=== PATIENT | male | born 1965 ===

== ENCOUNTER 2019-09-06 19:32 | Inpatient (IN) | payer OTHER ==
[2019-09-06] MEDS: Propofol 1,000 MG/100 ML VIAL IV PRN (22:25)
[2019-09-06] MEDS ORDERED: Electrolyte Replacement Protoc 1 EACH EACH IVPB ONE (22:40)
[2019-09-06] MEDS ORDERED: Acetaminophen 650 MG Suppository PR PRN (22:40)
[2019-09-06] MEDS ORDERED: Ventilator Sedation Protocol 1 EACH FS SCH (22:45)
[2019-09-06] MEDS ORDERED: Propofol 1,000 MG/100 ML VIAL IV ONE (23:23)
--- NOTE | 2019-09-06 23:29 | PDOC.EVN ---
Event Note - Event Note Event Note: [id number] HP dictated
[2019-09-06] MEDS ORDERED: Magnesium Oxide 400 MG TAB PO PRN ×2 (23:34)
[2019-09-06] MEDS ORDERED: Propofol BOLUS 1,000 MG/100 ML VIAL IV PRN (23:34)
[2019-09-06] MEDS ORDERED: PHOS-NAK 1 PKT PACK PO PRN ×2 (23:34)
[2019-09-06] MEDS ORDERED: Potassium Phosphate 15 MMOL in Sodium Chloride 0.9% 250 ML 250 ML IV PRN (23:34)
[2019-09-06] MEDS ORDERED: Fentanyl BOLUS 250 ML IVPB PRN (23:34)
[2019-09-06] MEDS ORDERED: Potassium Chloride 20 MEQ TAB PO PRN (23:34)
[2019-09-06] MEDS ORDERED: Potassium Chloride 40 MEQ in Premix Bag 1 BAG IVPB PRN (23:34)
[2019-09-06] MEDS ORDERED: DISCONTINUE PREVIOUS NARCOTIC PAIN MEDICATIONS AND BENZODIAZEPINES FS SCH (23:34)
[2019-09-06] MEDS ORDERED: CCU ELECTROLYTE REPLACEMENT PROTOCOL FS PRN (23:34)
[2019-09-06] MEDS ORDERED: Potassium Phosphate 9 MMOL in Sodium Chloride 0.9% 100 ML IVPB PRN (23:34)
[2019-09-06] MEDS ORDERED: Magnesium 2 GM/50 ML 2 GM in Premix Bag 1 BAG IVPB PRN (23:34)
[2019-09-06] MEDS ORDERED: Potassium Phosphate 12 MMOL in Sodium Chloride 0.9% 250 ML 250 ML IV PRN (23:34)
[2019-09-06] MEDS ORDERED: Morphine 2 MG/ML SYRINGE SLOW IVP PRN (23:34)
[2019-09-06] MEDS ORDERED: Potassium Chloride 40 MEQ in Sodium Chloride 0.9% 250 ML 250 ML IVPB PRN (23:34)
[2019-09-06] MEDS ORDERED: Azithromycin 500 MG in Sodium Chloride 0.9% 250 ML 250 ML IVPB SCH (23:45)
[2019-09-06] MEDS: fentaNYL Citrate/PF 2,000 MCG in Sodium Chloride 0.9% 60 ML IV SCH (23:50)
[2019-09-06] MEDS: Cefepime 1 GM in Sodium Chloride 0.9% 100 ML IVPB SCH (23:50)
[2019-09-06] MEDS: Vecuronium 10 MG VIAL IV PRN (23:50)
[2019-09-06] MEDS: methylPREDNISolone Sod Succ 40 MG VIAL IVP SCH (23:50)
[2019-09-07] MEDS ORDERED: Dextrose 5% in Water 1,000 ML IV PRN (01:21)
[2019-09-07] MEDS ORDERED: Dextrose 50% Abboject 50 ML SYRINGE SLOW IVP PRN (01:21)
[2019-09-07] MEDS ORDERED: HumaLOG 300 UNITS/3 ML VIAL SC PRN (01:21)
[2019-09-07 01:51] LABS: ALT (SGPT) 68 U/L (8-55); AST (SGOT) 134 U/L (5-34); Albumin 3.4 g/dL (3.5-5.0); Alkaline Phosphatase 134 U/L (40-110); Anion Gap 18 mmol/L (10-20); BUN (Urea Nitrogen) 19 mg/dL (8.4-25.7); Bilirubin, Direct 0.5 mg/dL (0.1-0.3); Bilirubin, Total 1.1 mg/dL (0.2-1.2); Calc. Creatinine Clearance 143 mL/min (70-130); Carbon Dioxide 30 mmol/L (22-29); Chloride 94 mmol/L (98-107); Estimated GFR-MDRD 69; Globulin 3.2 g/dL (2.4-3.5); Glucose 97 mg/dL (70-105); Potassium 3.8 mmol/L (3.5-5.1); Protein, Total 6.6 g/dL (6.0-8.3); Sodium 138 mmol/L (136-145)
--- NOTE | 2019-09-07 02:32 | HP ---
CHIEF COMPLAINT: Respiratory failure. HISTORY OF PRESENT ILLNESS: Mr. Ashton is a 53-year-old male with past medical history of pulmonary embolism, hypertension, diabetes mellitus, lung cancer?, depression, who is being transferred from [facility] after he presented there a few days ago with shortness of breath. The patient initially was treated with oxygen, and then placed on BiPAP. COVID test came back positive today. The patient deteriorated, became more hypoxic, requiring intubation and mechanical ventilation. The patient is being transferred to our medical facility for pulmonary/visual associate consultation and further management. No further history can be obtained this time. The patient is currently sedated. PAST MEDICAL HISTORY: As per records. 1. Hypertension. 2. Diabetes mellitus. 3. Depression. 4. Pulmonary embolism. 5. Lung cancer? PAST SURGICAL HISTORY: Unknown. SOCIAL HISTORY: Unknown. The patient is intubated and sedated. FAMILY HISTORY: Unknown. The patient is intubated and sedated. ALLERGIES: UNKNOWN. CURRENT/HOME MEDICATIONS: Please see home medication reconciliation form for updated medications. REVIEW OF SYSTEMS: Unable to obtain. The patient is intubated and sedated. PHYSICAL EXAMINATION: GENERAL: The patient is intubated, sedated, on mechanical ventilator. VITAL SIGNS: Blood pressure is 130/80, heart rate is 80, respiratory rate is 24, temperature is 99.5. HEAD AND NECK: Normocephalic. NECK: Supple. CHEST: Coarse bilateral breath sounds. HEART: S1 and S2. Regular. ABDOMEN: Soft. Bowel sounds present. NEUROLOGIC: Intubated, sedated, unable to assess. PSYCH: Unable to assess. EXTREMITIES: No clubbing or cyanosis. LABORATORY DATA: Current oxygen saturation is 88% on SIMV, rate of 24, tidal volume 500, PEEP of 8, 100% FiO2. Labs pending. ASSESSMENT AND PLAN: 1. Acute hypoxic respiratory failure. 2. Pneumonia, COVID-19 infection. 3. History of pulmonary embolism. 4. Hypertension. 5. Diabetes history. 6. Depression history. 7. History of lung cancer? PLAN: 1. Continue full ventilator support. We will increase the PEEP as recommended by tmd teacher. We will continue sedation and use paralytics as needed. 2. IV steroids. 3. Convalescent plasma. 4. Antiviral. 5. IV antibiotics, cefepime, and azithromycin. 6. Continue anticoagulation. 7. GI prophylaxis. 8. Pulmonary/visual associate consulted for critical care management. 9. DVT prophylaxis. The patient is on anticoagulation. 10. The patient's condition is critical. 11. Expected length of stay, 3 midnights or more. Job ID: [id number]
[2019-09-07] MEDS: Vecuronium 10 MG VIAL IV PRN ×5 (02:33→21:30)
[2019-09-07] MEDS: Propofol 1,000 MG/100 ML VIAL IV PRN ×5 (02:34→16:01)
[2019-09-07] MEDS ORDERED: Non-Formulary Item 1 EACH in Sodium Chloride 0.9% 250 ML 210 ML IV SCH (02:45)
[2019-09-07] MEDS ORDERED: Enoxaparin Sodium 80 MG/0.8 ML SYRINGE SC SCH ×2 (02:45→21:00)
[2019-09-07 04:56] LABS: ALT (SGPT) 58 U/L (8-55); AST (SGOT) 87 U/L (5-34); Albumin 3.1 g/dL (3.5-5.0); Alkaline Phosphatase 117 U/L (40-110); Anion Gap 16 mmol/L (10-20); BUN (Urea Nitrogen) 22 mg/dL (8.4-25.7); Bilirubin, Total 1.1 mg/dL (0.2-1.2); Calc. Creatinine Clearance 99 mL/min (70-130); Calcium 8.6 mg/dL (7.8-10.44); Carbon Dioxide 34 mmol/L (22-29); Chloride 92 mmol/L (98-107); Estimated GFR-MDRD 46; Globulin 3.6 g/dL (2.4-3.5); Glucose 155 mg/dL (70-105); Potassium 3.7 mmol/L (3.5-5.1); Protein, Total 6.7 g/dL (6.0-8.3); Sodium 138 mmol/L (136-145)
[2019-09-07] MEDS: methylPREDNISolone Sod Succ 40 MG VIAL IVP SCH ×4 (04:57→23:25)
[2019-09-07 04:58] LABS: Band 24 % (5-11); Lymphocytes 1 % (21-51); MDiff Complete? YES; Mean Corpuscular HGB CONC 30.5 g/dL (32.0-36.0); Mean Corpuscular Volume 78.8 fL (78.0-98.0); Mean Platelet Volume 10.6 fL (7.4-10.4); Monocytes 2 % (0-10); Neutrophil 73 % (42-75); Platelet Count 190 thou/uL (130-400); RBC Distribution Width 15.4 % (11.5-14.5); White Blood Cell (WBC) Count 8.4 thou/uL (4.8-10.8)
[2019-09-07] MEDS: HumaLOG 300 UNITS/3 ML VIAL SC PRN ×3 (05:27→16:00)
[2019-09-07] MEDS: Famotidine/PF 20 mg/2ml Vial SLOW IVP SCH ×2 (07:08→21:11)
[2019-09-07] MEDS: Lorazepam 2 MG/ML VIAL SLOW IVP PRN ×4 (07:09→15:28)
[2019-09-07 07:38] LABS: Actual Bicarbonate (HCO3a) 31.8 mEq/L (22-28); Base Excess (BEa) 7.1 mEq/L (-2.0 to +3.0); CO2 Tension 45.6 mmHg (35.0-45.0); Calcium, Ionized (arterial) 1.07 mmol/L (1.12-1.30); Hemoglobin (Hb) 12.1 g/dL (14.0-18.0); O2 Tension (PaO2), arterial 73.9 mmHg (80.0-100.0); Potassium - ABG Lab 3.13 mmol/L (3.70-5.30); pH, Arterial 7.46 (7.35-7.45)
[2019-09-07 07:40] LABS: Puncture Site LRA
--- NOTE | 2019-09-07 07:45 | RAD ---
Chest one view HISTORY: Dyspnea. Pneumonia. Follow-up. COMPARISON: 09/04/2019. FINDINGS: Cardiac silhouette is magnified, enlarged, and partially obscured by worsening patchy wides pread infiltrates throughout each lung that have progressed since the prior study. Pulmonary vasculature is more engorged. Patient is rotated leftward. Tip of an endotracheal catheter is at the level of the clavicular heads. Nasogastric tube descends to the abdomen. No evidence of pneumothorax. hot dip tinning supervisor leads overlie the chest. IMPRESSION : Interval radiographic worsening of pulmonary vascular congestion and multifocal infiltrates. Endotracheal catheter tip just above the level of the clavicular heads. Consider slight advancement.
[2019-09-07] MEDS ORDERED: Enoxaparin Sodium 40 MG/0.4 ML SYRINGE SC SCH ×3 (09:00→14:45)
--- NOTE | 2019-09-07 12:24 | CON ---
DATE OF CONSULTATION: HISTORY OF PRESENT ILLNESS: Esteban Ashton is a 53-year-old morbidly obese gentleman from the [facility], who was at the [facility] for 24 hours with a diagnosis of respiratory failure. There was some concern that he had a history of presumed pulmonary emboli, hypertension, diabetes, lung cancer stage IV. He then became markedly short of breath. His coronavirus test was negative. He was placed on BiPAP, he was not able to tolerate it. The physician from [facility] notified me that he was being intubated and was being transferred over here. Previous arrangements had been made for him to go to [place], where he had previous medical treatment. Unfortunately, post intubation, he was unstable and he was therefore transferred over here. Obviously, we are unable to get any additional information or history at this time. By reviewing his records from [facility], where he was initially seen by physician over there, his admitting diagnosis was shortness of breath. His list of medicine had included amlodipine 10, aspirin 81, atorvastatin, Coreg 6.25 twice a day, Decadron 4 mg daily, duloxetine 30, Lovenox 130 subcu q.12, ferrous sulfate, lactulose, morphine t.i.d., insulin, Tagrisso 80, hydrochlorothiazide 50. His diagnoses are metastatic lung cancer, diabetes, hypertension, dermatitis, diabetes, previous PE diagnosed in June 2019. He is a [facility] inmate. He smoked for five years as per the history. Quit drinking after he went to the [facility]. PHYSICAL EXAMINATION: GENERAL: He is in the prone position this morning because of his severe hypoxemia. VITAL SIGNS: Pulse 77, blood pressure 106/61, sats 97%. He is on 100%, PEEP of 10. CHEST: Decreased breath sounds. No wheezing. No crackles. CARDIAC: Normal S1 and S2. No gallops. ABDOMEN: No masses. EXTREMITIES: Trace edema. LABORATORY DATA: White count 8000, hemoglobin and hematocrit 12 and 38, platelet count is 190, 73 segs, 24 bands. PO2 is 73, pCO2 of 40, pH 7.46, rate 24, 90%, PEEP of 12. Creatinine is 1.58. Liver function is elevated. His bilirubin is 1.1. His AST is 87, ALT is 58. COVID serology positive. X-ray shows extensive bilateral infiltrates, may be some kind of masslike shadow in the right lung. ASSESSMENT: 1. Respiratory failure, pneumonia, coronavirus positive. 2. Morbid obesity. 3. Metastatic cancer, history of pulmonary embolism, mild azotemia. Steroids, doxycycline, Lovenox, remdesivir and convalescent plasma have been initiated. We will try and get him to [place] as soon as he is stabilized, since they have all of his records over there. This is a 45-minute critical time. Job ID: [id number]
[2019-09-07] MEDS: Cefepime 1 GM in Sodium Chloride 0.9% 100 ML IVPB SCH ×2 (12:53→21:10)
[2019-09-07] MEDS ORDERED: Cefepime 1 GM in Sodium Chloride 0.9% 100 ML IVPB SCH (13:00)
[2019-09-07] MEDS: fentaNYL Citrate/PF 2,000 MCG in Sodium Chloride 0.9% 60 ML IV SCH (15:23)
--- NOTE | 2019-09-07 21:00 | PDOC.HOSPP ---
- Subjective Encounter Date: 09/07/19 Encounter Time: 07:00 Subjective: no overnight events. Remains in prone position - Objective Vital Signs & Weight: Vital Signs (12 hours) Temp Pulse Resp BP 09/07/19 20:00 98.5 F 09/07/19 18:45 71 136/72 09/07/19 18:00 09/07/19 16:00 98.2 F 09/07/19 14:05 75 09/07/19 14:00 09/07/19 12:00 98.5 F 09/07/19 10:00 24 H 09/07/19 09:57 86 Weight Admit Weight 293 lb Weight 293 lb 3.437 oz Most Recent Monitor Data Heart Rate from ECG 76 NIBP 135/72 NIBP BP-Mean 93 Respiration from ECG 20 SpO2 97 I&O: 09/06/19 09/07/19 09/08/19 06:59 06:59 06:59 Intake Total 386 465.0 Output Total 920 1440 Balance -534 -975.0 Result Diagrams: 09/07/19 03:45 09/07/19 03:45 Additional Labs: Accuchecks 09/07/19 09/07/19 09/07/19 15:37 10:08 05:35 POC Glucose 171 H 186 H 173 H Hospitalist ROS - Review of Systems ROS unobtainable: due to endotracheal tube - Medication Medications: Active Medications Generic Name Dose Route Start Last Admin Trade Name Freq PRN Reason Stop Dose Admin Famotidine 20 mg 09/07/19 09:00 09/07/19 07:08 Pepcid SLOW IVP 20 mg Q12HR KATERYNA Administration Fentanyl Citrate 2,000 mcg/ 100 mls @ 0 mls/hr 09/06/19 23:34 09/07/19 15:23 Sodium Chloride IV 10/06/19 23:34 100 mls INF KATERYNA Administration Protocol Per Protocol Doxycycline Hyclate 100 mg/ 100 mls @ 100 mls/hr 09/07/19 09:00 09/07/19 09: 31 Sodium Chloride IVPB 100 mls Q12HR KATERYNA Administration Insulin Human Lispro 0 units 09/07/19 01:21 09/07/19 16:00 Humalog SC 2 units .MILD SLIDING SCALE PRN Administration Mild Correctional Scale Lorazepam 2 mg 09/06/19 23:34 09/07/19 15:28 Ativan SLOW IVP 10/06/19 23:34 2 mg Q1H PRN Administration Breakthrough agitation Methylprednisolone Sodium Succinate 40 mg 09/06/19 23:59 09/07/19 18:57 Solu-Medrol IVP 40 mg Q6HR KATERYNA Administration Propofol 1,000 mg 09/06/19 23:34 09/07/19 16:01 Diprivan IV 10/06/19 23:34 1,000 mg INF PRN Administration TO ACHIEVE GOAL RASS Protocol Vecuronium [place] 10 mg 09/06/19 23:41 09/07/19 04:56 Norcuron IV 10 mg Q1H PRN Administration PARALYSIS - Exam General - other findings: intubated sedated prone Heart: RRR, no murmur, no gallops, no rubs Respiratory: CTAB, no wheezes, no rales, no ronchi Extremities: 1+ LE edema Hosp A/P - Plan #COVID pneumonia #ARDS -remdesivir stopped since not qualifying (symptoms ~ 2 weeks) -continue ABx and ventilation as per primary PCCM, ID #metastatic lung cancer
[2019-09-07] MEDS: Enoxaparin Sodium 40 MG/0.4 ML SYRINGE SC SCH (21:11)
[2019-09-08] MEDS: Propofol 1,000 MG/100 ML VIAL IV PRN ×6 (00:40→21:24)
[2019-09-08] MEDS: Vecuronium 10 MG VIAL IV PRN (01:36)
[2019-09-08] MEDS ORDERED: Non-Formulary Item 1 EACH in Sodium Chloride 0.9% 250 ML 230 ML IV SCH (02:45)
[2019-09-08] MEDS: methylPREDNISolone Sod Succ 40 MG VIAL IVP SCH (05:01)
[2019-09-08] MEDS: HumaLOG 300 UNITS/3 ML VIAL SC PRN ×4 (05:47→20:16)
--- NOTE | 2019-09-08 07:47 | RAD ---
Chest one view HISTORY: Pneumonia. Dyspnea. Follow-up. COMPARISON: 09/07/2019. FINDINGS: Cardiac silhouette is magnified and enlarged. Pulmonary vasculature remains engorged. The r ight upper lobe and left lung infiltrates are slightly less dense than on the prior study. Mediastinum is midline. Lines and tubes are unchanged in position. No evidence of pneumothorax. IMPRESSION : Slight interval improvement in radiographic appearance of multifocal infiltrates and pulmonary vascul ar congestion.
[2019-09-08 08:05] LABS: Base Excess (BEa) 9.6 mEq/L (-2.0 to +3.0)
[2019-09-08 08:06] LABS: Puncture Site RRA
[2019-09-08 08:14] LABS: Hemoglobin 12.7 g/dL (14.0-18.0); Mean Corpuscular HGB CONC 30.9 g/dL (32.0-36.0); Mean Platelet Volume 9.7 fL (7.4-10.4); Platelet Count 205 thou/uL (130-400); RBC Distribution Width 15.6 % (11.5-14.5); White Blood Cell (WBC) Count 8.9 thou/uL (4.8-10.8)
[2019-09-08] MEDS: Enoxaparin Sodium 40 MG/0.4 ML SYRINGE SC SCH (08:37)
[2019-09-08 08:38] LABS: O2 Tension (PaO2), arterial 43.5 mmHg (80.0-100.0); pH, Arterial 7.52 (7.35-7.45)
[2019-09-08] MEDS: Cefepime 1 GM in Sodium Chloride 0.9% 100 ML IVPB SCH ×2 (08:38→19:44)
[2019-09-08 08:39] LABS: Actual Bicarbonate (HCO3a) 33.4 mEq/L (22-28); Hemoglobin (Hb) 13.1 g/dL (14.0-18.0)
[2019-09-08] MEDS: Famotidine/PF 20 mg/2ml Vial SLOW IVP SCH ×2 (08:39→19:45)
[2019-09-08 08:40] LABS: Carboxyhemoglobin (COHb) 0.9 gm% (0.0-3.0)
[2019-09-08 08:41] LABS: ALT (SGPT) 52 U/L (8-55); AST (SGOT) 135 U/L (5-34); Albumin 3.2 g/dL (3.5-5.0); Alkaline Phosphatase 108 U/L (40-110); Anion Gap 17 mmol/L (10-20); BUN (Urea Nitrogen) 32 mg/dL (8.4-25.7); Bilirubin, Direct 0.3 mg/dL (0.1-0.3); Bilirubin, Total 0.6 mg/dL (0.2-1.2); Calc. Creatinine Clearance 119 mL/min (70-130); Calcium 9.1 mg/dL (7.8-10.44); Carbon Dioxide 29 mmol/L (22-29); Chloride 97 mmol/L (98-107); Estimated GFR-MDRD 58; Glucose 159 mg/dL (70-105); Potassium 3.7 mmol/L (3.5-5.1); Protein, Total 7.2 g/dL (6.0-8.3); Sodium 139 mmol/L (136-145)
[2019-09-08 08:41] LABS: Calcium, Ionized (arterial) 1.15 mmol/L (1.12-1.30)
--- NOTE | 2019-09-08 08:49 | PDOC.EVN ---
Event Note - Event Note Event Note: Did not encounter the patient to limit exposure. This morning, remains HD stable , hypoxic. metabolic alkalosis likely due to NGT. Ventilation and antibiotics as per ID and PCCM. Yesterday, did [id number] to initiate transfer process.
[2019-09-08] MEDS ORDERED: Enoxaparin Sodium 40 MG/0.4 ML SYRINGE SC SCH (09:27)
[2019-09-08 09:46] LABS: Band 14 % (5-11); Lymphocytes 8 % (21-51); MDiff Complete? YES; Monocytes 2 % (0-10); Neutrophil 74 % (42-75); Nucleated RBC 1 % (0); Platelet Morphology Comment Appears Adequate; Polychromasia SLIGHT = 2-3 cells (100X) (0-2/hpf); Reactive Lymphocytes 2 % (0-10)
--- NOTE | 2019-09-08 09:48 | PRG ---
DATE OF SERVICE: 09/08/2019 SUBJECTIVE: Mr. Ashton is a 53-year-old morbidly obese gentleman, 287 pounds, 6 feet, coronavirus pneumonia, respiratory failure, he is sedated. This morning, he is somewhat better. OBJECTIVE: VITAL SIGNS: Pulse 84, blood pressure 140/90, sats are 98%, respirations 27. CHEST: Decreased breath sounds. No wheezing. CARDIAC: Normal S1, S2. No gallops. ABDOMEN: Massive. DIAGNOSTIC STUDIES: X-ray shows improvement in his bilateral lung infiltrates. His pO2 was 43, pCO2 70%, rate of 20, PEEP of 14. White count 8000, H and H 12 and 41, platelet count is normal. Lytes are normal. Creatinine 1.29. ASSESSMENT: 1. History from [facility] now says stage IV non-small cell lung cancer with liver and CONTRACT ASSOCIATE mets, on Decadron. 2. Significant pulmonary embolism, on Lovenox twice a day. 3. History of apparently alveolar proteinosis surprisingly. 4. Coronavirus pneumonia. PLAN: Full-dose Lovenox. He is not weanable at this stage. Supportive care, PT. This is one-half hour of critical care time. Job ID: [id number]
[2019-09-08] MEDS: fentaNYL Citrate/PF 2,000 MCG in Sodium Chloride 0.9% 60 ML IV SCH (11:48)
[2019-09-08] MEDS: Enoxaparin Sodium 100 MG/ML SYRINGE SC SCH ×2 (11:52→19:45)
[2019-09-08] MEDS: Enoxaparin Sodium 30 MG/0.3 ML SYRINGE SC SCH ×2 (12:24→19:45)
[2019-09-08] MEDS: Doxycycline 100 MG CAP PO SCH (19:44)
[2019-09-09] MEDS: Propofol 1,000 MG/100 ML VIAL IV PRN ×6 (01:05→23:04)
[2019-09-09 04:09] LABS: ALT (SGPT) 51 U/L (8-55); AST (SGOT) 134 U/L (5-34); Albumin 2.9 g/dL (3.5-5.0); Alkaline Phosphatase 98 U/L (40-110); Anion Gap 12 mmol/L (10-20); BUN (Urea Nitrogen) 31 mg/dL (8.4-25.7); Bilirubin, Direct 0.3 mg/dL (0.1-0.3); Bilirubin, Total 0.5 mg/dL (0.2-1.2); Calc. Creatinine Clearance 131 mL/min (70-130); Calcium 8.6 mg/dL (7.8-10.44); Carbon Dioxide 33 mmol/L (22-29); Chloride 97 mmol/L (98-107); Estimated GFR-MDRD 65; Globulin 3.6 g/dL (2.4-3.5); Glucose 176 mg/dL (70-105); Potassium 3.2 mmol/L (3.5-5.1); Protein, Total 6.5 g/dL (6.0-8.3); Sodium 139 mmol/L (136-145)
[2019-09-09 04:11] LABS: Band 2 % (5-11); Hemoglobin 11.7 g/dL (14.0-18.0); Hypochromia SLIGHT = 6-15 cells (100X) (0-5/hpf); Lymphocytes 6 % (21-51); MDiff Complete? YES; Mean Corpuscular HGB CONC 32.7 g/dL (32.0-36.0); Mean Corpuscular Hemoglobin 25.5 pg (27.0-31.0); Mean Corpuscular Volume 78.1 fL (78.0-98.0); Mean Platelet Volume 9.7 fL (7.4-10.4); Metamyelocyte 1 % (0-0); Monocytes 2 % (0-10); Neutrophil 89 % (42-75); Platelet Count 213 thou/uL (130-400); Platelet Morphology Comment Appears Adequate; RBC Distribution Width 15.2 % (11.5-14.5); Red Blood Cell (RBC) Count 4.57 mill/uL (4.70-6.10); White Blood Cell (WBC) Count 9.4 thou/uL (4.8-10.8)
[2019-09-09] MEDS: Doxycycline 100 MG CAP PO SCH ×2 (05:37→19:33)
[2019-09-09] MEDS: HumaLOG 300 UNITS/3 ML VIAL SC PRN ×3 (05:51→17:24)
[2019-09-09] MEDS: fentaNYL Citrate/PF 2,000 MCG in Sodium Chloride 0.9% 60 ML IV SCH (06:44)
[2019-09-09 07:54] LABS: Actual Bicarbonate (HCO3a) 31.1 mEq/L (22-28); Base Excess (BEa) 7.2 mEq/L (-2.0 to +3.0); CO2 Tension 41.2 mmHg (35.0-45.0); Calcium, Ionized (arterial) 1.15 mmol/L (1.12-1.30); Carboxyhemoglobin (COHb) 0.7 gm% (0.0-3.0); Hemoglobin (Hb) 11.5 g/dL (14.0-18.0); Potassium - ABG Lab 3.39 mmol/L (3.70-5.30)
[2019-09-09 08:02] LABS: Puncture Site RRAD
[2019-09-09] MEDS: Cefepime 1 GM in Sodium Chloride 0.9% 100 ML IVPB SCH ×2 (08:10→19:33)
[2019-09-09] MEDS: Dexamethasone 4 mg/ml Vial SLOW IVP SCH (08:12)
[2019-09-09] MEDS: Enoxaparin Sodium 100 MG/ML SYRINGE SC SCH ×2 (08:12→19:34)
[2019-09-09] MEDS: Famotidine/PF 20 mg/2ml Vial SLOW IVP SCH ×2 (08:12→19:34)
[2019-09-09] MEDS: Enoxaparin Sodium 30 MG/0.3 ML SYRINGE SC SCH ×2 (08:12→19:33)
--- NOTE | 2019-09-09 08:17 | RAD ---
SINGLE VIEW OF THE CHEST: COMPARISON: 09/08/2019. HISTORY: Ventilated patient with respiratory failure. FINDINGS: A single view of the chest shows an enlarged but stable cardiomediastinal silhouette. The lines and tubes are unchanged in position. There are stable multifocal airspace opacities in the lungs. There may be a small left pleural effusion. IMPRESSION: Stable exam. POS: MARTÍNA
--- NOTE | 2019-09-09 09:14 | PRG ---
DATE OF SERVICE: 09/09/2019 SUBJECTIVE: Esteban Ashton remains intubated in the vent, sedated. OBJECTIVE: VITAL SIGNS: X-ray of chest shows bilateral infiltrates, respirations set at 20, FiO2 of 70, PEEP blood pressure 118/68, and he is afebrile. CHEST: Decreased breath sounds. No wheezing. CARDIAC: Normal S1, S2. No gallops. ABDOMEN: Massive. LABORATORY DATA: White count 9000, H and H 11 and 33, and platelet count 213. His pO2 of 60, pCO2 pressure support of 10, 70 FiO2, rate at 20. Lytes are normal. IMPRESSION: Respiratory failure, morbid obesity, metastatic carcinoma, pulmonary emboli, coronavirus positive pneumonia. PLAN: The patient is not weanable. I am going to decrease his rate. Continue nutrition. He needs to be transferred to [place], where he has all his medical records, etc. I have discontinued his steroids. 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 This is one-half hour of critical care time. Job ID: [id number]
[2019-09-09] MEDS: Lorazepam 2 MG/ML VIAL SLOW IVP PRN ×3 (09:19→23:34)
--- NOTE | 2019-09-09 20:35 | PDOC.HOSPP ---
- Subjective Encounter Date: 09/09/19 Encounter Time: 07:00 Subjective: no overnight events. this morning, in supine position, remains HD stable, intubated, sedated. CXR stable. Pending [facility] transfer - Objective Vital Signs & Weight: Vital Signs (12 hours) Temp Pulse Resp Pulse Ox 09/09/19 20:00 23 H 09/09/19 19:29 73 09/09/19 19:18 97 09/09/19 19:00 99.3 F 09/09/19 18:00 27 H 09/09/19 16:00 99.2 F 29 H 09/09/19 14:49 70 09/09/19 14:00 22 H 09/09/19 12:00 98.8 F 23 H 09/09/19 10:26 66 Weight Admit Weight 293 lb Weight 286 lb 9.615 oz Most Recent Monitor Data Heart Rate from ECG 70 NIBP 139/82 NIBP BP-Mean 101 Respiration from ECG 21 SpO2 95 I&O: 09/08/19 09/09/19 09/10/19 06:59 06:59 06:59 Intake Total 1166.0 1425.1 1019.4 Output Total 2590 1632 831 Balance -1424.0 -206.9 188.4 Result Diagrams: 09/09/19 03:11 09/09/19 03:11 Additional Labs: Accuchecks 09/09/19 09/09/19 09/09/19 19:45 17:24 11:23 POC Glucose 182 H 163 H 174 H Hospitalist ROS - Review of Systems ROS unobtainable: due to endotracheal tube - Medication Medications: Active Medications Generic Name Dose Route Start Last Admin Trade Name Freq PRN Reason Stop Dose Admin Dexamethasone 4 mg 09/09/19 09:00 09/09/19 08:12 Decadron SLOW IVP 4 mg DAILY KATERYNA Administration Doxycycline Hyclate 100 mg 09/08/19 20:00 09/09/19 19:33 Vibramycin PO 09/12/19 20:01 100 mg 0600,1999 KATERYNA Administration Enoxaparin Sodium 100 mg 09/08/19 09:00 09/09/19 19:34 Lovenox SC 100 mg 09,2099 KATERYNA Administration Enoxaparin Sodium 30 mg 09/08/19 09:00 06/12/20 19:33 Lovenox SC 30 mg BID KATERYNA Administration Famotidine 20 mg 09/07/19 09:00 09/09/19 19:34 Pepcid SLOW IVP 20 mg Q12HR KATERYNA Administration Fentanyl Citrate 2,000 mcg/ 100 mls @ 0 mls/hr 09/06/19 23:34 09/09/19 06:44 Sodium Chloride IV 10/06/19 23:34 100 mls INF KATERYNA Administration Protocol Per Protocol Cefepime HCl 1 gm/ Sodium 100 mls @ 200 mls/hr 09/07/19 21:00 09/09/19 19:33 Chloride IVPB 100 mls Q12HR KATERYNA Administration Insulin Human Lispro 0 units 09/07/19 01:21 09/09/19 17:24 Humalog SC 2 units .MILD SLIDING SCALE PRN Administration Mild Correctional Scale Lorazepam 2 mg 09/06/19 23:34 09/09/19 11:56 Ativan SLOW IVP 10/06/19 23:34 2 mg Q1H PRN Administration Breakthrough agitation Potassium Chloride 40 meq 09/06/19 23:34 09/09/19 05:37 Klor-Con PER TUBE 40 meq ASDIR PRN Administration FOR SERUM K+ 2.5-3.5 Propofol 1,000 mg 09/06/19 23:34 09/09/19 19:34 Diprivan IV 10/06/19 23:34 1,000 mg INF PRN Administration TO ACHIEVE GOAL RASS Protocol Vecuronium [place] 10 mg 09/06/19 23:41 09/08/19 01:36 Norcuron IV 10 mg Q1H PRN Administration PARALYSIS - Exam General - other findings: sedated and intubated Eye: PERRL Neck: no JVD Heart: RRR, no murmur, no gallops, no rubs, normal peripheral pulses Respiratory: CTAB, no wheezes, no rales, no ronchi, normal chest expansion, no tachypnea, normal percussion Gastrointestinal: soft, non-distended Gastrointestinal - other findings: attenuated bowel sounds Extremities: 1+ LE edema Hosp A/P - Plan #COVID pneumonia #ARDS -remdesivir stopped since not qualifying (symptoms ~ 2 weeks) -CXR multifocal b/l opacities c/w ARDS; stable (09/08) -continue ABx and ventilation as per primary PCCM, ID #lung Cancer w/ mets including to brain -started decadron per PCCM Full code pending [facility] placement
[2019-09-10] MEDS: fentaNYL Citrate/PF 2,000 MCG in Sodium Chloride 0.9% 60 ML IV SCH ×2 (01:38→17:13)
[2019-09-10] MEDS: Propofol 1,000 MG/100 ML VIAL IV PRN ×3 (01:45→07:42)
[2019-09-10 04:12] LABS: Band 14 % (5-11); Hemoglobin 11.3 g/dL (14.0-18.0); Lymphocytes 8 % (21-51); MDiff Complete? YES; Mean Corpuscular HGB CONC 31.9 g/dL (32.0-36.0); Mean Corpuscular Hemoglobin 24.8 pg (27.0-31.0); Mean Corpuscular Volume 77.7 fL (78.0-98.0); Mean Platelet Volume 9.4 fL (7.4-10.4); Metamyelocyte 1 % (0-0); Monocytes 1 % (0-10); Neutrophil 76 % (42-75); Platelet Count 220 thou/uL (130-400); Platelet Morphology Comment Appears Adequate; RBC Distribution Width 15.2 % (11.5-14.5); Red Blood Cell (RBC) Count 4.58 mill/uL (4.70-6.10); White Blood Cell (WBC) Count 9.4 thou/uL (4.8-10.8)
[2019-09-10 04:16] LABS: ALT (SGPT) 49 U/L (8-55); AST (SGOT) 94 U/L (5-34); Albumin 2.9 g/dL (3.5-5.0); Alkaline Phosphatase 98 U/L (40-110); Anion Gap 15 mmol/L (10-20); BUN (Urea Nitrogen) 26 mg/dL (8.4-25.7); Bilirubin, Direct 0.2 mg/dL (0.1-0.3); Bilirubin, Total 0.6 mg/dL (0.2-1.2); Calc. Creatinine Clearance 160 mL/min (70-130); Calcium 8.7 mg/dL (7.8-10.44); Carbon Dioxide 30 mmol/L (22-29); Chloride 99 mmol/L (98-107); Estimated GFR-MDRD 81; Globulin 3.7 g/dL (2.4-3.5); Glucose 126 mg/dL (70-105); Potassium 3.3 mmol/L (3.5-5.1); Protein, Total 6.6 g/dL (6.0-8.3); Sodium 141 mmol/L (136-145)
[2019-09-10] MEDS: Lorazepam 2 MG/ML VIAL SLOW IVP PRN ×6 (05:00→22:22)
[2019-09-10] MEDS: Doxycycline 100 MG CAP PO SCH ×2 (05:11→20:10)
[2019-09-10 07:26] LABS: Actual Bicarbonate (HCO3a) 33.4 mEq/L (22-28); Base Excess (BEa) 9.7 mEq/L (-2.0 to +3.0); CO2 Tension 41.5 mmHg (35.0-45.0); Calcium, Ionized (arterial) 1.11 mmol/L (1.12-1.30); Carboxyhemoglobin (COHb) 0.4 gm% (0.0-3.0); Hemoglobin (Hb) 11.9 g/dL (14.0-18.0); Potassium - ABG Lab 3.34 mmol/L (3.70-5.30); pH, Arterial 7.52 (7.35-7.45)
[2019-09-10 07:47] LABS: O2 Tension (PaO2), arterial 49.1 mmHg (80.0-100.0); Puncture Site RRAD
[2019-09-10 07:48] LABS: ALV-art Gradient 398.125 (0-20)
[2019-09-10] MEDS: Enoxaparin Sodium 100 MG/ML SYRINGE SC SCH ×2 (08:12→20:10)
[2019-09-10] MEDS: Cefepime 1 GM in Sodium Chloride 0.9% 100 ML IVPB SCH ×2 (08:13→20:10)
[2019-09-10] MEDS: Dexamethasone 4 mg/ml Vial SLOW IVP SCH (08:13)
[2019-09-10] MEDS: Famotidine/PF 20 mg/2ml Vial SLOW IVP SCH ×2 (08:13→20:11)
[2019-09-10] MEDS: Enoxaparin Sodium 30 MG/0.3 ML SYRINGE SC SCH ×2 (08:13→20:10)
--- NOTE | 2019-09-10 08:25 | RAD ---
Exam: Chest one view HISTORY:Respiratory distress. Ventilated patient. Comparison: 09/09/2019 FINDINGS: Lines and tubes: Redemonstration of endotracheal and nasogastric tube Cardiac silhouette:Enlarged cardiac silhouette. Aorta: Unremarkable Pulmonary vessels: Normal Costophrenic angles: Clear LUNGS: Stable bilateral consolidation with air bronchograms. Pneumothorax: None Osseous abnormalities: None IMPRESSION: Persistent bilateral consolidation with air bronchograms. No significant interval change.
[2019-09-10] MEDS ORDERED: Vecuronium 10 MG VIAL ONE (10:11)
[2019-09-10] MEDS ORDERED: Vecuronium 10 MG VIAL IV SCH (10:30)
--- NOTE | 2019-09-10 12:58 | PRG ---
DATE OF SERVICE: 09/10/2019 SUBJECTIVE: Esteban Ashton . OBJECTIVE: VITAL SIGNS: Heart rate is in the 70s, respiratory rates in the 20s , blood pressure 140/86. LUNGS: Remarkable for coarse equal breath sounds. HEART: Regular rhythm. ABDOMEN: Soft extremities without asymmetry or edema. IMAGING STUDIES: Chest x-ray is unchanged. LABORATORY DATA: White count 9.4, hemoglobin 11.3, and platelets 220. Sodium 141, potassium 3.3, chloride 99, bicarb 30, BUN 26, and creatinine 0.96. A pH of 7.52, CO2 of 41, and PO2 of 49. IMPRESSION: 1. COVID-19 pneumonia. 2. Obesity. 3. Metastatic cancer. 4. Pulmonary emboli. His chances of survival are small given his multiple medical problems and his advanced malignancy, comfort care would be appropriate. All of his care has been in [place]. He needs to be transferred when a bed becomes available. Critical care time 35 min. Job ID: [id number] MTDD
[2019-09-10] MEDS: Vecuronium 10 MG VIAL IV PRN ×3 (17:38→23:06)
--- NOTE | 2019-09-10 17:43 | PDOC.EVN ---
Event Note - Event Note Event Note: Chart reviewed. Pt was seen by PCCM today. To conserve PPE pt not seen by me today. Pt continues to be intubated. VS noted. - Assessment/Plan #COVID pneumonia #ARDS -continue ABx and ventilation as per primary PCCM, ID #lung Cancer w/ mets including to brain -started on dexamethasone pending [facility] placement
[2019-09-10] MEDS ORDERED: Sodium Chloride 0.9% 15 ML NEB ONE (20:45)
[2019-09-11] MEDS: Vecuronium 10 MG VIAL IV PRN ×5 (00:24→09:25)
[2019-09-11] MEDS: Lorazepam 2 MG/ML VIAL SLOW IVP PRN ×3 (00:57→08:08)
[2019-09-11] MEDS: fentaNYL Citrate/PF 2,000 MCG in Sodium Chloride 0.9% 60 ML IV SCH ×3 (02:54→23:11)
[2019-09-11 04:14] LABS: Band 4 % (5-11); Hemoglobin 11.1 g/dL (14.0-18.0); Hypochromia SLIGHT = 6-15 cells (100X) (0-5/hpf); Lymphocytes 6 % (21-51); MDiff Complete? YES; Mean Corpuscular HGB CONC 30.5 g/dL (32.0-36.0); Mean Corpuscular Hemoglobin 23.8 pg (27.0-31.0); Mean Corpuscular Volume 78.3 fL (78.0-98.0); Mean Platelet Volume 10.3 fL (7.4-10.4); Monocytes 1 % (0-10); Neutrophil 89 % (42-75); Platelet Count 209 thou/uL (130-400); Platelet Morphology Comment Appears Adequate; RBC Distribution Width 15.4 % (11.5-14.5); Red Blood Cell (RBC) Count 4.66 mill/uL (4.70-6.10); White Blood Cell (WBC) Count 9.6 thou/uL (4.8-10.8)
[2019-09-11 04:23] LABS: ALT (SGPT) 43 U/L (8-55); AST (SGOT) 77 U/L (5-34); Albumin 2.8 g/dL (3.5-5.0); Alkaline Phosphatase 104 U/L (40-110); Anion Gap 14 mmol/L (10-20); BUN (Urea Nitrogen) 22 mg/dL (8.4-25.7); Bilirubin, Direct 0.3 mg/dL (0.1-0.3); Bilirubin, Total 0.6 mg/dL (0.2-1.2); Calc. Creatinine Clearance 174 mL/min (70-130); Calcium 8.4 mg/dL (7.8-10.44); Carbon Dioxide 28 mmol/L (22-29); Chloride 103 mmol/L (98-107); Estimated GFR-MDRD 88; Globulin 3.8 g/dL (2.4-3.5); Glucose 97 mg/dL (70-105); Potassium 3.5 mmol/L (3.5-5.1); Protein, Total 6.6 g/dL (6.0-8.3); Sodium 141 mmol/L (136-145)
[2019-09-11] MEDS: Doxycycline 100 MG CAP PO SCH ×2 (05:11→19:32)
[2019-09-11] MEDS ORDERED: Vecuronium 10 MG VIAL ONE (06:29)
[2019-09-11] MEDS ORDERED: Sterile Water 10 ML ONE ×2 (06:30→06:31)
[2019-09-11 07:52] LABS: Actual Bicarbonate (HCO3a) 29.7 mEq/L (22-28); Base Excess (BEa) 5.6 mEq/L (-2.0 to +3.0); CO2 Tension 41.3 mmHg (35.0-45.0); Calcium, Ionized (arterial) 1.14 mmol/L (1.12-1.30); Carboxyhemoglobin (COHb) 1.6 gm% (0.0-3.0); Hemoglobin (Hb) 12.4 g/dL (14.0-18.0); Potassium - ABG Lab 3.83 mmol/L (3.70-5.30); pH, Arterial 7.48 (7.35-7.45)
[2019-09-11 08:15] LABS: O2 Tension (PaO2), arterial 47.6 mmHg (80.0-100.0)
[2019-09-11 08:16] LABS: ALV-art Gradient 399.875 (0-20); Puncture Site RRAD
--- NOTE | 2019-09-11 08:32 | RAD ---
Exam: Chest one view HISTORY:Respiratory distress. Ventilated patient. Comparison: 09/10/2019 FINDINGS: Cardiac silhouette:Cardiomegaly. Aorta: Unremarkable Pulmonary vessels: Normal Costophrenic angles: Clear LUNGS: Stable bilateral consolidation with air bronchograms. Pneumothorax: None Osseous abnormalities: None IMPRESSION: No significant interval change.
[2019-09-11] MEDS: Cefepime 1 GM in Sodium Chloride 0.9% 100 ML IVPB SCH ×2 (09:25→21:14)
[2019-09-11] MEDS: Famotidine/PF 20 mg/2ml Vial SLOW IVP SCH ×2 (09:25→21:15)
[2019-09-11] MEDS: Dexamethasone 4 mg/ml Vial SLOW IVP SCH (10:01)
[2019-09-11] MEDS: Enoxaparin Sodium 100 MG/ML SYRINGE SC SCH ×2 (10:02→21:15)
[2019-09-11] MEDS: Enoxaparin Sodium 30 MG/0.3 ML SYRINGE SC SCH ×2 (10:03→21:15)
[2019-09-11] MEDS: Vecuronium Bromide 50 MG in Sodium Chloride 0.9% 250 ML 250 ML IV SCH ×4 (10:18→23:10)
--- NOTE | 2019-09-11 15:01 | PRG ---
DATE OF SERVICE: 09/11/2019 SUBJECTIVE: Mr. Ashton remains stable. OBJECTIVE: VITAL SIGNS: Respiratory rate is 24, heart rate is in 60s, blood pressure is 160/95. LUNGS: Unchanged. HEART: Unchanged. ABDOMEN: Unchanged. DIAGNOSTIC DATA: Chest x-ray is reviewed. Bilateral infiltrates persist. There is no significant change. LABORATORY DATA: White count 9.6, hemoglobin 11.1, and platelets 209,000. Electrolytes are normal. BUN is normal. Creatinine is normal. Albumin is 2.8. IMPRESSION: 1. COVID-19 pneumonia with respiratory failure. 2. Hypertension. 3. Diabetes. 4. History of pulmonary embolism. 5. History of metastatic lung cancer. So I will free the word to contacted sister, who lives in [place]. All of his multiple medical problems were explained. Unfortunately, his prognosis for survival of his cancer is dismal. If he only has pneumonia and respiratory failure, it makes his prognosis even worse. My belief is that do not resuscitate status and comfort care measures should be the next step. I have asked his sister contact the other family members, then give it to palliative care team to discuss these options. His chances of a functional survival in my opinion are close to zero. Critical care time 30 min. Job ID: [id number] MTDD
[2019-09-11] MEDS: HumaLOG 300 UNITS/3 ML VIAL SC PRN (16:37)
--- NOTE | 2019-09-11 19:09 | PDOC.EVN ---
Event Note - Event Note Event Note: Chart reviewed. To conserve PPE I did not examine patient today. Pt was seen by PCCM today. Pt continues to be intubated. VS noted. - Assessment/Plan #COVID pneumonia #ARDS -Pt is intubated and mechanically ventilated -Pt is on antibiotics -PCCM/ID following #lung Cancer w/ mets including to brain -Pt is on dexamethasone Awaiting [facility] placement
[2019-09-12] MEDS: Vecuronium Bromide 50 MG in Sodium Chloride 0.9% 250 ML 250 ML IV SCH ×3 (03:55→17:48)
[2019-09-12] MEDS: Doxycycline 100 MG CAP PO SCH ×2 (06:17→20:39)
[2019-09-12 06:18] LABS: ALT (SGPT) 32 U/L (8-55); AST (SGOT) 44 U/L (5-34); Albumin 2.6 g/dL (3.5-5.0); Alkaline Phosphatase 98 U/L (40-110); Anion Gap 11 mmol/L (10-20); BUN (Urea Nitrogen) 25 mg/dL (8.4-25.7); Bilirubin, Total 0.5 mg/dL (0.2-1.2); Calc. Creatinine Clearance 172 mL/min (70-130); Calcium 8.1 mg/dL (7.8-10.44); Carbon Dioxide 29 mmol/L (22-29); Chloride 107 mmol/L (98-107); Estimated GFR-MDRD 89; Globulin 3.6 g/dL (2.4-3.5); Glucose 136 mg/dL (70-105); Potassium 3.8 mmol/L (3.5-5.1); Protein, Total 6.2 g/dL (6.0-8.3); Sodium 143 mmol/L (136-145)
[2019-09-12 06:21] LABS: Band 9 % (5-11); Eosinophils 1 % (0-10); Hemoglobin 10.1 g/dL (14.0-18.0); Lymphocytes 9 % (21-51); MDiff Complete? YES; Mean Corpuscular HGB CONC 30.7 g/dL (32.0-36.0); Mean Corpuscular Hemoglobin 24.3 pg (27.0-31.0); Mean Corpuscular Volume 79.3 fL (78.0-98.0); Mean Platelet Volume 9.9 fL (7.4-10.4); Monocytes 2 % (0-10); Neutrophil 79 % (42-75); Platelet Count 190 thou/uL (130-400); Platelet Morphology Comment Appears Adequate; RBC Distribution Width 15.7 % (11.5-14.5); Red Blood Cell (RBC) Count 4.15 mill/uL (4.70-6.10); White Blood Cell (WBC) Count 7.9 thou/uL (4.8-10.8)
[2019-09-12 07:42] LABS: Actual Bicarbonate (HCO3a) 27.9 mEq/L (22-28); Base Excess (BEa) 3.3 mEq/L (-2.0 to +3.0); CO2 Tension 42.4 mmHg (35.0-45.0); Calcium, Ionized (arterial) 1.17 mmol/L (1.12-1.30); Hemoglobin (Hb) 10.7 g/dL (14.0-18.0); Potassium - ABG Lab 3.91 mmol/L (3.70-5.30); pH, Arterial 7.44 (7.35-7.45)
[2019-09-12 07:52] LABS: O2 Tension (PaO2), arterial 50.2 mmHg (80.0-100.0); Puncture Site LRA
--- NOTE | 2019-09-12 08:11 | RAD ---
Exam: Chest one view HISTORY:Ventilated patient. Respiratory distress. Comparison: 09/11/2019 FINDINGS: Lines and tubes: Stable endotracheal and nasogastric tube Cardiac silhouette: Normal Aorta: Unremarkable Pulmonary vessels: Normal Costophrenic angles: Clear LUNGS: Persistent diffuse interstitial and alveolar opacities. Pneumothorax: None Osseous abnormalities: None IMPRESSION: No significant interval change.
--- NOTE | 2019-09-12 09:02 | PRG ---
DATE OF SERVICE: 09/12/2019 SUBJECTIVE: Esteban Ashton is a 53-year-old morbidly obese gentleman, intubated in the vent and sedated, paralyzed. X-ray still shows bilateral haziness. OBJECTIVE: VITAL SIGNS: His pulse is 76, respiratory rate set at 24, his sats are 93%, blood pressure 112/68. His I's and O's consistently ahead. CHEST: Decreased breath sounds. No wheezing. No crackles. CARDIAC . no murmers ABDOMEN: Massive. LABORATORY DATA: PO2 is 50, sWH672 ph 7.43_ rate at 24, PEEP of 14. White count 7000, H and H are stable. Lytes are normal. IMPRESSION: Coronavirus pneumonia, morbid obesity, metastatic lung cancer, pulmonary emboli. PLAN: He is not weanable at this stage. I expect to try to get him to [place] if it is possible. Otherwise, his prognosis is grave, still a full code. One-half hour of critical care time. Job ID: [id number] MTDD
[2019-09-12] MEDS: Cefepime 1 GM in Sodium Chloride 0.9% 100 ML IVPB SCH ×2 (10:00→20:38)
[2019-09-12] MEDS: fentaNYL Citrate/PF 2,000 MCG in Sodium Chloride 0.9% 60 ML IV SCH ×2 (10:02→20:32)
[2019-09-12] MEDS: Enoxaparin Sodium 30 MG/0.3 ML SYRINGE SC SCH ×2 (10:03→20:39)
[2019-09-12] MEDS: Enoxaparin Sodium 100 MG/ML SYRINGE SC SCH ×2 (10:03→20:39)
[2019-09-12] MEDS: Famotidine/PF 20 mg/2ml Vial SLOW IVP SCH ×2 (10:03→20:39)
[2019-09-12] MEDS: Dexamethasone 4 mg/ml Vial SLOW IVP SCH (10:03)
[2019-09-12] MEDS: SYSTANE 3.5 GM TUBE EA EYE SCH ×2 (10:39→20:41)
--- NOTE | 2019-09-12 13:00 | PDOC.EVN ---
Event Note - Event Note Event Note: - Event Note Chart reviewed. To conserve PPE I did not examine patient today. Pt was seen by the brim pouncer machine operator today. Pt continues to be intubated. VS noted. - Assessment/Plan #COVID pneumonia #ARDS -Pt is intubated and mechanically ventilated -Pt is on antibiotics -PCCM/ID following #lung Cancer w/ mets including to brain -Pt is on dexamethasone Awaiting [facility] placement
[2019-09-12 13:34] VITALS: BMI 38.1
[2019-09-12 15:12] VITALS: BP 145/79
[2019-09-13] MEDS: Vecuronium Bromide 50 MG in Sodium Chloride 0.9% 250 ML 250 ML IV SCH ×2 (00:33→06:24)
[2019-09-13 05:10] LABS: Eosinophils 1 % (0-10); Hemoglobin 11.6 g/dL (14.0-18.0); Hypochromia SLIGHT = 6-15 cells (100X) (0-5/hpf); Lymphocytes 9 % (21-51); MDiff Complete? YES; Mean Corpuscular Hemoglobin 23.8 pg (27.0-31.0); Mean Corpuscular Volume 79.1 fL (78.0-98.0); Mean Platelet Volume 10.7 fL (7.4-10.4); Metamyelocyte 1 % (0-0); Monocytes 11 % (0-10); Neutrophil 78 % (42-75); Platelet Count 226 thou/uL (130-400); Platelet Morphology Comment Appears Adequate; RBC Distribution Width 15.8 % (11.5-14.5); Red Blood Cell (RBC) Count 4.87 mill/uL (4.70-6.10); White Blood Cell (WBC) Count 8.8 thou/uL (4.8-10.8)
[2019-09-13 05:17] LABS: ALT (SGPT) 34 U/L (8-55); AST (SGOT) 40 U/L (5-34); Alkaline Phosphatase 111 U/L (40-110); Anion Gap 10 mmol/L (10-20); BUN (Urea Nitrogen) 24 mg/dL (8.4-25.7); Bilirubin, Total 0.5 mg/dL (0.2-1.2); Calc. Creatinine Clearance 170 mL/min (70-130); Calcium 8.9 mg/dL (7.8-10.44); Carbon Dioxide 30 mmol/L (22-29); Chloride 107 mmol/L (98-107); Estimated GFR-MDRD 86; Globulin 4.4 g/dL (2.4-3.5); Glucose 119 mg/dL (70-105); Potassium 4.3 mmol/L (3.5-5.1); Protein, Total 7.4 g/dL (6.0-8.3); Sodium 143 mmol/L (136-145)
[2019-09-13 05:25] LABS: Magnesium 2.3 mg/dL (1.6-2.6); Phosphorus 2.7 mg/dL (2.3-4.7)
[2019-09-13] MEDS ORDERED: hydrALAZINE 20 MG/ML VIAL SLOW IVP PRN (06:08)
[2019-09-13] MEDS: fentaNYL Citrate/PF 2,000 MCG in Sodium Chloride 0.9% 60 ML IV SCH (06:18)
[2019-09-13 07:35] LABS: Actual Bicarbonate (HCO3a) 28.2 mEq/L (22-28); Base Excess (BEa) 3.6 mEq/L (-2.0 to +3.0); CO2 Tension 42.9 mmHg (35.0-45.0); Calcium, Ionized (arterial) 1.18 mmol/L (1.12-1.30); Hemoglobin (Hb) 11.3 g/dL (14.0-18.0); pH, Arterial 7.44 (7.35-7.45)
[2019-09-13 07:37] LABS: ALV-art Gradient 325.075 (0-20); O2 Tension (PaO2), arterial 49.1 mmHg (80.0-100.0); Puncture Site RRA
--- NOTE | 2019-09-13 08:03 | RAD ---
EXAM: Single view of the chest HISTORY: Ventilated patient with respiratory failure COMPARISON: 09/12/2019 FINDINGS: Single view of the chest shows an enlarged but stable cardiomediastinal silhouette. The li kayla and tubes are unchanged in position. There are stable multifocal infiltrates in the lungs. These are more prominent in the bilateral lower lobes. The bones are unremarkable. IMPRESSION: Multifocal pneumonia
[2019-09-13] MEDS: Cefepime 1 GM in Sodium Chloride 0.9% 100 ML IVPB SCH (09:04)
[2019-09-13] MEDS: Dexamethasone 4 mg/ml Vial SLOW IVP SCH (09:04)
[2019-09-13] MEDS: Enoxaparin Sodium 100 MG/ML SYRINGE SC SCH (09:04)
[2019-09-13] MEDS: Enoxaparin Sodium 30 MG/0.3 ML SYRINGE SC SCH (09:04)
[2019-09-13] MEDS: SYSTANE 3.5 GM TUBE EA EYE SCH (09:05)
[2019-09-13] MEDS: Famotidine/PF 20 mg/2ml Vial SLOW IVP SCH (09:05)
[2019-09-13] MEDS: Propofol 1,000 MG/100 ML VIAL IV PRN ×2 (09:06→10:46)
--- NOTE | 2019-09-13 09:23 | PRG ---
DATE OF SERVICE: Mr. Ashton intubated on the vent on a Versed and fentanyl drip and being paralyzed from time to time, the x-ray shows worsening diffuse infiltrates today. OBJECTIVE: VITAL SIGNS: Temperature 97, pulse 84, 60% FiO2, sats 97% on the vent with PEEP for 14, blood pressure is 146/82. He stopped doing the prone position. CHEST: Decreased breath sounds, no wheezing, rhonchi. CARDIAC: Normal S1, S2. No gallops. ABDOMEN: Soft. PO2 was 49, pCO2 of 42, pH 7.44, rate at 24, 60%, 14 PEEP. LABORATORY DATA: White count 8000, platelet count 26. IMPRESSION: Respiratory failure, pulmonary emboli, high doses Lovenox, metastatic cancer. As per the family, he is conference call 12 o'clock. Palliative Care is going to discuss the comfort care versus extubation. He is not weanable at this stage. One-half hour of critical care time. Job ID: [id number]
[2019-09-13 12:10] VITALS: TEMP 98.8
--- NOTE | 2019-09-13 12:38 | PDOC.FMACP ---
Advance Care Planning - Problem (1) COVID-19 Status: Acute Code(s): U07.1 - COVID-19 (2) Metastatic lung cancer (metastasis from lung to other site) Status: Acute Code(s): C34.90 - MALIGNANT NEOPLASM OF UNSP PART OF UNSP BRONCHUS OR LUNG (3) Obesity Status: Acute Code(s): E66.9 - OBESITY, UNSPECIFIED (4) Respiratory failure requiring intubation Status: Acute Code(s): J96.90 - RESPIRATORY FAILURE, UNSP, UNSP W HYPOXIA OR HYPERCAPNIA (5) Palliative care encounter Status: Acute Code(s): Z51.5 - ENCOUNTER FOR PALLIATIVE CARE - Note Participants: family, palliative care Summary: Palliative Care introduced Advanced Care Planning to family, they were allowed an opportunity to decline. The diagnosis, prognosis and goals of care were discussed. Family meeting coordinated, they siblings listed below agreed to transition to DNAR and compassionate extubation secondary to poor meaningful recovery and multiple morbidities. Dr Leon, Dr Devries, and spiritual care notified. Sy Riley RNpiano stringer notified Jared Jimenez. Appropriate forms and documentation to accomplish the goals of care were discussed. All questions were answered. Please also refer to Sy Riley RN notes in note section. Time Spent (mins): 60
[2019-09-13] MEDS ORDERED: Lorazepam 2 MG/ML VIAL SLOW IVP PRN (14:12)
[2019-09-13] MEDS ORDERED: Scopolamine 1.5 mg/72 hour Patch TD SCH (14:15)
[2019-09-13] MEDS ORDERED: Morphine 4 MG/ML VIAL SLOW IVP PRN (15:00)
--- NOTE | 2019-09-13 15:22 | PRG ---
DATE OF SERVICE: 09/13/2019 SUBJECTIVE: Esteban Ashton, inmate from the long-term system in [place], day #7 in the hospital. Palliative care discussed with his sisters. He had no children or regarding a code status. They said that they wanted comfort care only for the brother "I didn't want him to suffer." The patient had multiorgan failure. He was to be transferred to [place]. There were no beds available. He had a diagnosis of metastatic lung cancer on top of his coronavirus positive bronchopneumonia respiratory failure. Over the course of the last week, he had received aggressive treatment for the virus without much improvement. It was felt, he would be extubated with comfort care. This was done at about 2 o'clock. At 1439 hours on 09/13/2019, he had no pulse, no respirations, pupils fixed and dilated. He was pronounced by the nurse. His body was being released to the long-term system. His family was notified about the demise time. FINAL DIAGNOSES: 1. Respiratory failure secondary to coronavirus pneumonia aggravated by metastatic stage IV lung cancer. 2. Morbid obesity. 3. Acute respiratory distress syndrome secondary to number 1. Job ID: [id number]
--- NOTE | 2019-09-14 03:34 | DIS ---
DATE OF ADMISSION: 09/06/2019 DATE OF DISCHARGE: 09/13/2019 REASON FOR ADMISSION: 1. Respiratory failure causes . 2. COVID-19 associated pneumonia. 3. Pulmonary embolism. 4. Metastatic cancer to the lungs. CONTRIBUTING FACTORS: Diabetes and hypertension. SUMMARY OF HOSPITAL COURSE: This is a 53-year-old male with history of pulmonary embolism, hypertension, diabetes, and metastatic cancer at [facility] in July, who was admitted to [facility] with shortness of breath diagnosed with COVID. He had deterioration there and had to be intubated and transferred to our facility. The patient was treated in our facility over the course of a week. He had decline in his status and his children were brought and Palliative Care discussed his poor prognosis, as well as the metastatic cancer throughout his lungs. They determined that he would not want to suffer any further with this and so they did decide to withdraw care and withdraw the ventilator. The patient was extubated and he did pass away on September 13, 2019, at 1439 hours. His body was discharged to the home. No autopsy planned. Job ID: [id number]
== END 2019-09-13 14:39 | disposition expired | DRG 207 ==
LOC: EEVIPCON 19:32 → CCU 19:32
PROVIDERS: ADMIT Internal Medicine; ATTEND Emergency Medicine
PROC: 5A1955Z Respiratory Ventilation, Greater than 96 Consecutive Hours (ICD-10-PCS; principal; 2019-09-06)
DX: U07.1 COVID-19 (principal); J12.89 Other viral pneumonia; J96.01 Acute respiratory failure with hypoxia; J80 Acute respiratory distress syndrome; I26.99 Other pulmonary embolism without acute cor pulmonale; C34.90 Malignant neoplasm of unspecified part of unspecified bronchus or lung; C78.7 Secondary malignant neoplasm of liver and intrahepatic bile duct; C79.40 Secondary malignant neoplasm of unspecified part of nervous system; C79.31 Secondary malignant neoplasm of brain; Z51.5 Encounter for palliative care; Z66 Do not resuscitate; I10 Essential (primary) hypertension; E11.9 Type 2 diabetes mellitus without complications; F32.9 Major depressive disorder, single episode, unspecified; E66.01 Morbid (severe) obesity due to excess calories; F17.210 Nicotine dependence, cigarettes, uncomplicated; Z88.2 Allergy status to sulfonamides; Z88.1 Allergy status to other antibiotic agents; Z68.38 Body mass index [BMI] 38.0-38.9, adult; Z79.01 Long term (current) use of anticoagulants; Z79.899 Other long term (current) drug therapy
CPT/HCPCS: 36415; 36416; 36430; 71045; 80053; 80076; 82248; 82575; 82805; 83735; 83880; 84100; 85007; 85027; 86850; 86900; 86901; 94002; 94003; A4218; J0692; J1100; J1650; J2060; J2704; J2920; J3010; J3490; J7050; S0028